=== PATIENT | male | born 1995 | race Caucasian/White ===

== ENCOUNTER 2016-11-21 17:27 | Emergency (ER) | payer OTHER ==
[~2016-11-21] VITALS: Ht 172.7 cm; Wt 76.0 kg
[2016-11-21 17:32] VITALS: BP 131/76
[2016-11-21] MEDS ORDERED: IBUPROFEN 600 MG TAB PO ONE (18:25)
--- NOTE | 2016-11-21 18:55 | NUR ---
21M BIB FRIEND C/O LEFT KNEE PAIN S/P FALLING OFF SKATEBOARD 15 MINUTES AGO PRIOR TO ARRIVAL TO ER; PT STATES NO LOC AT TIME OF INCIDENT. DENIES N/V/D; SKIN IS PINK/WARM/DRY; AAOX4 WITH EVEN AND STEADY GAIT; LUNGS CLEAR BL; HR EVEN AND REGULAR; PATIENT STATES PAIN OF 4/10 AT THIS TIME; VSS; PATIENT POSITIONED FOR COMFORT; HOB ELEVATED; BEDRAILS UP X2; BED DOWN. ER MD MADE AWARE OF PT STATUS.
--- NOTE | 2016-11-21 19:12 | NUR ---
GAVE REPORT TO ANJEL MORGAN
[2016-11-21] MEDS ORDERED: BACITRACIN OINT 500 UNITS/GM PKT TP ONE (20:05)
[2016-11-21 20:18] VITALS: BP 131/76
--- NOTE | 2016-11-21 20:21 | NUR ---
Patient discharged with v/s stable. Written and verbal after care instructions given and explained. Patient alert, oriented and verbalized understanding of instructions. Ambulatory with CRUTCHES. All questions addressed prior to discharge. ID band removed. Patient advised to follow up with PMD. Rx of MOTRIN 600MG given. Patient educated on indication of medication including possible reaction and side effects. Opportunity to ask questions provided and answered.
== END 2016-11-21 20:21 | disposition home or self-care (01) ==
LOC: MED 17:27
DX: M25.562 Pain in left knee (principal); V00.131A Fall from skateboard, initial encounter; Y93.51 Activity, roller skating (inline) and skateboarding; Y92.89 Other specified places as the place of occurrence of the external cause; Y99.8 Other external cause status
CPT/HCPCS: 29505; 73564; 99284

== ENCOUNTER 2017-09-18 14:46 | Emergency (ER) | payer OTHER ==
[~2017-09-18] VITALS: Ht 172.7 cm; Wt 75.7 kg
[2017-09-18 14:49] VITALS: BP 127/81
--- NOTE | 2017-09-18 14:54 | NUR ---
REPORT GIVEN TO JOHN ROY
--- NOTE | 2017-09-18 14:54 | NUR ---
PT AMBULATED TO ER BED 04
[2017-09-18] MEDS ORDERED: KETOROLAC 60 MG/2 ML VIAL IM ONE (15:00)
--- NOTE | 2017-09-18 15:01 | NUR ---
PATIENT IS A 22 YO MALE BIB SELF FOR RIGHT ANKLE PAIN. PATIENT IS AWAKE AND ALERT NO SWELLING OR DEFORMITY. TO BED 4 FOR MD ROLAND.
[2017-09-18 15:34] VITALS: BP 127/81
--- NOTE | 2017-09-18 15:35 | NUR ---
Patient discharged with v/s stable. Written and verbal after care instructions given and explained. Patient alert, oriented and verbalized understanding of instructions. Ambulatory with steady gait. All questions addressed prior to discharge. ID band removed. Patient advised to follow up with PMD. Rx of KEFLEX/MOTRIN/BACTRIM DS given. Patient educated on indication of medication including possible reaction and side effects. Opportunity to ask questions provided and answered.
== END 2017-09-18 15:35 | disposition home or self-care (01) ==
LOC: MED 14:46
DX: L03.115 Cellulitis of right lower limb (principal)
CPT/HCPCS: 96372; 99283; J1885

== ENCOUNTER 2019-05-27 10:50 | Emergency (ER) | payer MEDICAID, OTHER ==
[~2019-05-27] VITALS: Ht 172.7 cm; Wt 72.6 kg
[2019-05-27 10:58] VITALS: BP 114/78
--- NOTE | 2019-05-27 11:50 | NUR ---
Patient ambulated to bed 11. RN evaluating patient at bedside.
--- NOTE | 2019-05-27 11:55 | NUR ---
24 Y/O M C/C CHECK UP ON RUE SPLINT. PT IN URGENT CARE YESTERDAY, GOT SPLINT AND CD OF XRAY. PT IN NO PAIN, PER PT "JUST WANT TO MAKE SURE EVERYTHING IS ALRIGHT". [facility]. NKA. NO HX. NO RX. NO N/V/D. SIDE RAIL X1.
--- NOTE | 2019-05-27 12:21 | NUR ---
PT RESTING IN BED, SIDE RAIL X1
--- NOTE | 2019-05-27 13:50 | NUR ---
NORMA Jarrell is evaluating the patient at bedside.
--- NOTE | 2019-05-27 13:51 | NUR ---
NORMA JOHNSON AT BEDSIDE.
--- NOTE | 2019-05-27 13:54 | NUR ---
ELIU PREPARING SPLINT FOR PT.
--- NOTE | 2019-05-27 14:15 | NUR ---
Patient discharged with v/s stable. Written and verbal after care instructions given and explained. Patient alert, oriented and verbalized understanding of instructions. Ambulatory with steady gait. All questions addressed prior to discharge. ID band removed. Patient advised to follow up with PMD. Rx of MOTRIN given. Patient educated on indication of medication including possible reaction and side effects. Opportunity to ask questions provided and answered. PT INSTRUCTED TO TAKE MOTRIN WITH FOOD.
[2019-05-27 14:18] VITALS: BP 119/72
== END 2019-05-27 14:15 | disposition home or self-care (01) ==
LOC: MED 10:50
DX: S62.304A Unspecified fracture of fourth metacarpal bone, right hand, initial encounter for closed fracture (principal); W22.01XA Walked into wall, initial encounter; Y93.89 Activity, other specified; Y92.89 Other specified places as the place of occurrence of the external cause; Y99.8 Other external cause status
CPT/HCPCS: 99283